=== PATIENT | male | born 1965 | race Caucasian/White ===

== ENCOUNTER 2020-05-09 23:53 | Emergency (ER) | payer SELFPAY ==
[~2020-05-09] VITALS: Ht 182.9 cm; Wt 117.9 kg
--- OUTSIDE RECORDS SUMMARY | ~2020-05-09 | XMS | Clinical Summary ---
Demographics + + + | Address | [address] | | | [place] [address] | + + + | Home Phone | | + + + | Preferred Language | Unknown | + + + | Marital Status | | + + + | Baptist Affiliation | Unknown | + + + | Race | Unknown | + + + | Ethnic Group | Unknown | + + + Author + + + | Author | [facility] | | | and [place] | + + + | Organization | [facility] | | | and [place] | + + + | Address | Unknown | + + + | Phone | Unavailable | + + + Support + + +---------+ + | Name | Relationship | Address | Phone | + + +---------+ + | Lindsay Hector | ECON | Unknown | | + + +---------+ + Care Team Providers + +------+ + | Care Liquid Floor And Wall Applier Name | Role | Phone | + +------+ + | No, Physician | PCP | Unavailable | + +------+ + Allergies + + + + + + | Active Allergy | Reactions | Severity | Noted | Comments | | | | | Date | | + + + + + + | Penicillins | Hives | | 02/13/20 | | | | | | 19 | | + + + + + + Medications + + + +---------+------+------+-------+ | Medication | Sig | Dispensed | Refills | Star | End | Statu | | | | | | t | Date | s | | | | | | Date | | | + + + +---------+------+------+-------+ | tiZANidine | Take 1 tablet by | 30 | 0 | 05/1 | | Activ | | (ZANAFLEX) 2 MG | mouth every 8 hours | tablet | | 6/20 | | e | | tabletIndications: | as needed. | | | 19 | | | | Acute left-sided low | | | | | | | | back pain without | | | | | | | | sciatica | | | | | | | + + + +---------+------+------+-------+ Active Problems No known active problems Social History + +-------+ +--------+------+ | Tobacco Use | Types | Packs/Day | Years | Date | | | | | Used | | + +-------+ +--------+------+ | Former Smoker | | | | | + +-------+ +--------+------+ + +---+---+---+ | Smokeless Tobacco: | | | | | Never Used | | | | + +---+---+---+ + + + | Sex Assigned at | Date Recorded | | | | + + + | Not on file | | + + + Last Filed Vital Signs + + + + + | Vital Sign | Reading | Time Taken | Comments | + + + + + | Blood Pressure | 119/80 | 02/12/2019 9:14 AM | | | | | PDT | | + + + + + | Pulse | 78 | 02/12/2019 9:14 AM | | | | | PDT | | + + + + + | Temperature | 36.6 C (97.9 F) | 02/12/2019 9:14 AM | | | | | PDT | | + + + + + | Respiratory Rate | 18 | 02/12/2019 9:14 AM | | | | | PDT | | + + + + + | Oxygen Saturation | 96% | 02/12/2019 9:14 AM | | | | | PDT | | + + + + + | Inhaled Oxygen | - | - | | | Concentration | | | | + + + + + | Weight | 118.5 kg (261 lb 3.9 | 02/12/2019 9:14 AM | | | | oz) | PDT | | + + + + + | Height | 182.9 cm (6') | 02/12/2019 9:14 AM | | | | | PDT | | + + + + + | Body Mass Index | 35.43 | 02/12/2019 9:14 AM | | | | | PDT | | + + + + + Plan of Treatment + + +-------+ + | Health Maintenance | Due Date | Last | Comments | | | | Done | | + + +-------+ + | Hepatitis C | | | | | Screening | 7 | | | + + +-------+ + | Vaccine: | | | | | Dtap/Tdap/Td (1 - | 6 | | | | Tdap) | | | | + + +-------+ + | Colorectal Cancer | | | | | Screening | 7 | | | | (Colonoscopy) | | | | + + +-------+ + | Vaccine: Zoster (1 | | | | | of 2) | 7 | | | + + +-------+ + | Vaccine: Influenza | | | | | (#1) | 0 | | | + + +-------+ + Results Not on filefrom Last 3 Months Advance Directives + + + + + | Type | Date Recorded | Patient | Explanation | | | | 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
--- OUTSIDE RECORDS SUMMARY | ~2020-05-09 | XMS | Encounter Summary ---
Demographics + + + | Address | [address] | | | [place] [address] | + + + | Home Phone | | + + + | Preferred Language | Unknown | + + + | Marital Status | | + + + | Orthodox Affiliation | Unknown | + + + | Race | Unknown | + + + | Ethnic Group | Unknown | + + + Author + + + | Author | [facility] | | | and [place] | + + + | Organization | [facility] | | | and [place] [...] Team Providers + +------+ + | Care Media Executive Name | Role | Phone | + +------+ + | No, Physician | PCP | Unavailable | + +------+ + Encounter Details +--------+ + + + + | Date | Type | Department | Care Team | Description | +--------+ + + + + | 02/12/ | Imaging | [facility] X[facility] | Darci Ritchie | | | 2019 | Exam | [address] | | | | | [address] | [place] | | | | | [place] [id number] | [id number] | | | | | [phone] | | | +--------+ + + + + Social History + +-------+ +--------+------+ | Tobacco [...] on file | | + + + documented as of this encounter Plan of Treatment Not on filedocumented as of this encounter Procedures + +--------+ + + + | Procedure Name | Priori | Date/Time | Associated Diagnosis | Comments | | | ty | | | | + +--------+ + + + | XR CHEST PA AND | STAT | 02/12/2019 | Chronic cough | Results for this | | LATERAL | | 10:12 AM | | procedure are in the | | | | PDT | | results section. | + +--------+ + + + documented in this encounter Results XR Chest PA and Lateral (02/12/2019 10:12 AM PDT) + + | Specimen | + + | | + + + + + | Narrative | Performed At | + + + | XR CHEST PA AND LATERAL 02/12/2019 10:12 AM HISTORY: smoker with | [facility] | | chronic cough. COMPARISON: None. Findings: The bilateral | | | lungs are clear with no evidence for pleural effusion or | | | pneumothorax. Heart size is within normal limits. Pulmonary | | | vasculature is within normal limits. Aorta is normal. Mediastinum is | | | unremarkable. No acute osseous or soft tissue abnormality identified. | | | IMPRESSION - No acute intrathoracic abnormality identified. | | | Dictated and Signed by: Tristen Oneill MD Electronically signed: | | | 02/12/2019 10:17 AM | | + + + + + | Procedure Note | + + | Volodymyr, Rad Results In - 02/12/2019 10:20 AM PDT XR CHEST PA AND LATERAL 02/12/2019 10:12 | | AMHISTORY: smoker with chronic cough.COMPARISON: None.Findings:The bilateral lungs are | | clear with no evidence for pleural effusion orpneumothorax. Heart size is within normal | | limits. Pulmonary vasculature iswithin normal limits. Aorta is normal. Mediastinum is | | unremarkable. No acuteosseous or soft tissue abnormality identified. IMPRESSION - No | | acute intrathoracic abnormality identified.Dictated and Signed by: Tristen Oneill MD | | Electronically signed: 02/12/2019 10:17 AM | |The bilateral lungs are clear with no evidence for pleural effusion or | |pneumothorax. Heart size is within normal limits. Pulmonary vasculature is | |within normal limits. Aorta is normal. Mediastinum is unremarkable. No acute | |osseous or soft tissue abnormality identified. | | | |IMPRESSION - | |No acute intrathoracic abnormality identified. | | | |Dictated and Signed by: Tristen Oneill MD | | Electronically signed: 02/12/2019 10:17 AM | + + + +---------+ + + | Performing | Address | City/State/Zipcode | Phone Number | | Organization | | | | + +---------+ + + | [facility] | | | | + +---------+ + + documented in this encounter Visit Diagnoses Not on filedocumented in this encounter"
--- OUTSIDE RECORDS SUMMARY | ~2020-05-09 | XMS | Encounter Summary ---
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 Name | Role | Phone | + +------+ + | No, Physician | PCP | Unavailable | + +------+ + Reason for Referral Evaluate & Treat (Routine) +--------+ + + + + + | Status | Reason | Specialty | Diagnoses / | Referred By | Referred To | | | | | Procedures | Contact | Contact | +--------+ + + + + + | Closed | Specialty | Gastroenterol | Diagnoses | | [facility] | | Services | ogy | Change in | [facility] | Gastroenterol | | | Required | | bowel habits | , Darci Kelly MD | ogy [address] | | | | | Family | [address] | [address] | | | | | history of | [address] [place] | [address] [place] | | | | | colon cancer | [place] | [place], [place] | | | | | | [address] | [address] | | | | | | Phone: | Phone: | | | | | | [phone] | [phone] | | | | | | Fax: | Fax: | | | | | | [phone] | [phone] | +--------+ + + + + + Reason for Visit + + + | Reason | Comments | + + + | Flank Pain | Room 6: no energy, cold sweats x 4 days, pain in left flank x 4 | | | days, nausea; hx of kidney stones | + + + Encounter Details +--------+---------+ + + + | Date | Type | Department | Care Team | Description | +--------+---------+ + + + | 02/12/ | Office | [facility] | Darci Ritchie | Acute left-sided low | | 2019 | Visit | CARE [address] | MD [place] [address] | back pain without | | | | [place] | [address] [place] | sciatica (Primary | | | | [address] | [address] | Dx); Fatigue, | | | | [phone] | | unspecified type; | | | | | | Chronic cough; Night | | | | | | sweats; Weight | | | | | | loss, unintentional; | | | | | | Change in bowel | | | | | | habits; Family | | | | | | history of colon | | | | | | cancer | +--------+---------+ + + + Social History + +-------+ [...] + + documented as of this encounter Last Filed Vital Signs + + + [...] | | + + + + + documented in this encounter Patient Instructions Patient Instructions Michelle Carranza ARNP - 02/12/2019 9:00 AM PDTApply ice to the painful area for 15-20 min. at a time or moist heat for no longer than 15 min. to ten honey area. Use whichever you find most beneficial. Do not sleep on heating pad to prevent b urns. Rest on your back on a firm surface in the Z-position to relax your back. Limit yourself to light activity, with slow stretching and range of motion for your back as needed. Follow recommendations provided on the included instructions. Take Aleve 2 tablets twice a day with food or ibuprofen 600 mg every 6 hours with food as n eeded for pain. Drink lots of fluids to stay well hydrated. Take muscle relaxer, tizanidine 2 mg, 1 tablet up to 3 times daily or only at bedtime as ne eded for insomnia and muscle pain. Be aware that use during the day may cause drowsiness and effect ability to work and drive [place]. Referral has been made to [place] [facility] for colonoscopy to screen for colon cancer. Make an appointment to establish with a primary care provider at [facility] medicine clinic by calling [phone] for an appointment. Return to clinic in the interim if symptoms change or worsen. Report to the emergency room if chest pain, shortness of breath, persistent numbness or tin gling, incontinence of bowel and/or bladder or persistent leg weakness develops. Back Care Tips Caring for your back These are things you can do to prevent a recurrence of acute back pain and to reduce sympto ms from chronic back pain: Maintain a healthy weight. If you are overweight, losing weight will help most types of back pain. Exercise is an important part of recovery from most types of back pain. The muscles behi nd and in front of the spine support the back. This means strengthening both the back muscle s and the abdominal muscles will provide better support for your spine. Swimming and brisk walking are good overall exercises to improve your fitness level. Practice safe lifting methods (below). Practice good posture when sitting, standing and walking. Avoid prolonged sitting. This puts more stress on the lower back than standing or walking. Wear quality shoes with sufficient arch support. Foot and ankle alignment can affect evans k symptoms. Women should avoid wearing high heels. Therapeutic massage can help relax the back muscles without stretching them. During the first 24 to 72 hours after an acute injury or flare-up of chronic back pain, apply an ice pack to the painful area for 20 minutes and then remove it for 20 minutes, over a period of 60 to 90 minutes, or several times a day. As a safety precaution, do not use a heating pad at bedtime. Sleeping on a heating pad can lead to skin jordan or tissue damage. You can alternate ice and heat therapies. Medicines Talk to your healthcare provider before using medicines, especially if you have other medic al problems or are taking other medicines. You may use acetaminophen or ibuprofen to control pain, unless your healthcare provider prescribed other pain medicine. If you have chronic conditions like diabetes, liver or kidne y disease, stomach ulcers, or gastrointestinal bleeding, or are taking blood thinners, talk with your healthcare provider before taking any medicines. Be careful if you are given prescription pain medicines, narcotics, or medicine for musc le spasm. They can cause drowsiness, affect your coordination, reflexes, and judgment. Do no t drive or operate heavy machinery while taking these types of medicines. Take prescription pain medicine only as prescribed by your healthcare provider. Lumbar stretch Here is a simple stretching exercise that will help relax muscle spasm and keep your back m ore limber. If exercise makes your back pain worse, don t do it. Lie on your back with your knees bent and both feet on the ground. Slowly raise your left knee to your chest as you flatten your lower back against the mike or. Hold for 5 seconds. Relax and repeat the exercise with your right knee. Do 10 of these exercises for each leg. Safe lifting method Don t bend over at the waist to lift an object off the floor. Instead, bend your kne es and hips in a squat. Keep your back and head upright Hold the object close to your body, directly in front of you. Straighten your legs to lift the object. Lower the object to the floor in the reverse fashion. If you must slide something across the floor, push it. Posture tips Sitting Sit in chairs with straight backs or low-back support. Keep your knees lower than your hips , with your feet flat on the floor. When driving, sit up straight. Adjust the seat forward so you are not leaning toward the [employer] wheel. A small pillow or rolled towel behind your lower back may help if you are dr iving long distances. Standing When standing for long periods, shift most of your weight to one leg at a time. Alternate l egs every few minutes. Sleeping The best way to sleep is on your side with your knees bent. Put a low pillow under your hea d to support your neck in a neutral spine position. Avoid thick pillows that bend your neck to one side. Put a pillow between your legs to further relax your lower back. If you sleep o n your back, put pillows under your knees to support your legs in a slightly flexed position . Use a firm mattress. If your mattress sags, replace it, or use a 1/2-inch plywood board un honey the mattress to add support. Follow-up care Follow up with yourhealthcare provider, or as advised. If X-rays, a CT scan or an MRI scan were taken, they will be reviewed by a radiologist. You will be notified of any new findings that may affect your care. Call 911 Call 911 if any of the following occur: Trouble breathing Confusion Very drowsy Fainting or loss of consciousness Rapid or very slow heart rate Loss of bowel or bladder control When to seek medical advice Call your healthcare provider right awayif any of the following occur: Pain becomes worse or spreads to your arms or legs Weakness or numbness in one or both arms or legs Numbness in the groin area Date Last Reviewed: 02/29/201619995009-5115 [employer]. [address] [place] [address]. All righ ts reserved. This information is not intended as a substitute for professional medical care. Always follow your healthcare professional's instructions. documented in this encounter Progress Notes Melanie Ge RN - 02/12/2019 9:00 AM PDTVerified name and date of of mayela fish before provider orders were carried out. Venipuncture X1 left arm with 21 gauge butterfly needle. Patient tolerated well. Darci Vega MD - 02/12/2019 9:00 AM PDTFormatting of this note might be different from the or iginal. Subjective: Chief Complaint: Flank Pain (Room 6: no energy, cold sweats x 4 days, pain in left flank x 4 days, nausea; hx of kidney stones) Ministerio is a 53 y.o. male without insurance or a primary care provider who presents with hi s for possible kidney stone and multiple other complaints, mostly chronic. 4 day histor y of fatigue, sweats and left low back pain associated with nausea and history of kidney sto almita. Denies dysuria but has nocturia every 1-1/2 hours without urgency, hematuria, cloudy o r foul-smelling urine. No suprapubic discomfort and or flank pain. Pain is located across the small of his back and is positional without radiation into the abdomen, groin, buttocks or legs. No fevers or chills, had episode of nausea, vomiting and diarrhea 3 days ago which has resolved. Denies bloody or black tarry bowel movements. Ministerio has no hx of prior U TI's or prostate infections. He also reports a cough for the last 6 months occasionally productive of white sputum. Den ies hemoptysis. Former smoker quit about 1 year ago. 3-month history of night sweats witho ut documented fever. No history of heart disease. He has mild increase in dyspnea on exert ion when walking his dogs without exertional chest pain or tightness. No history of CAD or valvular heart disease. He denies orthopnea but has occasional PND. No history of COPD or asthma. Appetite's been down and reports approximate 30 pound weight loss over the last 6 m onths. Denies personal history of cancer. Family history of colon cancer in his uncle and brother with liver cancer. He is noticed a change in his bowel habits with less frequent ashlee wel movements. No other complaints. Patient's medications, allergies, past medical, surgical, social and family histories were reviewed and updated as appropriate. Systems review is included in the body of the HPI. Objective: BP 119/80 | Pulse 78 | Temp 36.6 C (97.9 F) (Temporal) | Resp 18 | Ht 1.829 m (6') | Wt 118.5 kg (261 lb 3.9 oz) | SpO2 96% | BMI 35.43 kg/m General Appearance: Alert, cooperative, obese, middle-aged male, appears well, no distress , appears stated age. HEENT: [place] conjunctiva, anicteric sclera, there is are clear, moist oral membranes, pharyn x unremarkable with large airway. Neck: Supple without adenopathy, JVD or bruit. He has a lipoma over the suprasternal notch which is well-circumscribed and mobile. No obvious thyroid abnormality. Chest: Clear to auscultation without rales, rubs or wheezes. No cardiac: Quiet precordium, regular rhythm without murmur or gallop. Abdomen: Flat with normally active bowel sounds, soft, nontender to deep palpation, No SP f ullness. Otherwise non-tender without rebound tenderness or guarding, no masses, no organome marry. Back: No CVA tenderness to percussion. Bilateral lower lumbar paraspinous muscle tendernes s with mild diffuse midline tenderness. No focal tenderness to percussion. No pain with ax ial compression of the vertebral column. Genital and rectal exams was not performed. Skin: Skin color normal, no rashes, warm and dry. No dependent edema. Neurologic: Certain oriented. Cranial nerves grossly intact. DTRs are normoactive. Senso rimotor exam grossly nonfocal. 2 view chest x-ray, today: IMPRESSION - No acute intrathoracic abnormality identified. Results for orders placed or performed in visit on 02/12/19 Comprehensive Metabolic Panel Result Value Ref Range Na 142 136 - 145 mmol/L K 4.4 3.5 - 5.1 mmol/L Cl 104 98 - 107 mmol/L CO2 31 21 - 32 mmol/L Anion Gap 7 2 - 16 mmol/L Glucose 104 74 - 106 mg/dL BUN 12 7 - 18 mg/dL Creatinine 0.97 0.70 - 1.30 mg/dL eGFR if not >60 >=60 mL/min/1.73m2 Ca 8.9 8.5 - 10.1 mg/dL Albumin 3.7 3.4 - 5.0 g/dL Bilirubin Total 0.5 0.2 - 1.0 mg/dL Total Protein 6.8 6.4 - 8.2 g/dL AST 32 15 - 37 U/L ALT 62 16 - 63 U/L Alkaline Phosphatase 74 46 - 116 U/L Globulin 3.1 2.1 - 3.8 g/dL Albumin/Globulin Ratio 1.2 0.8 - 2.0 BUN/Creatinine Ratio 12.4 CBC with Differential Result Value Ref Range WBC 8.4 4.0 - 11.0 K/uL RBC 4.94 4.30 - 5.70 M/uL Hemoglobin 15.1 13.5 - 18.0 g/dL Hematocrit 45.6 40.0 - 51.0 % MCV 92.3 83.0 - 101.0 fL MCH 30.6 28.0 - 35.0 pg MCHC 33.1 32.0 - 36.0 g/dL RDW-CV 12.6 <15.0 % RDW-SD 43.4 35.1 - 46.3 fL Platelet Count 178 140 - 440 K/uL MPV 10.8 6.5 - 12.4 fL % Neutrophils 68.7 45.0 - 82.0 % % Lymphocytes 18.8 (L) 20.0 - 45.0 % % Monocytes 9.0 4.0 - 12.0 % % Eosinophils 2.5 0.0 - 5.0 % % Basophils 0.4 0.0 - 1.0 % % Immature Granulocytes 0.6 (H) 0.0 - 0.4 % Absolute Neutrophils 5.74 1.80 - 8.50 K/uL Absolute Lymphocytes 1.57 0.60 - 3.20 K/uL Absolute Monocytes 0.75 0.00 - 1.00 K/uL Absolute Eosinophils 0.21 0.00 - 0.40 K/uL Absolute Basophils 0.03 0.00 - 0.10 K/uL Absolute Immature Granulocytes 0.05 (H) 0.00 - 0.03 K/uL TSH Result Value Ref Range TSH 1.94 0.36 - 3.74 uIU/mL POCT Urinalysis Result Value Ref Range Color, UA, POC Mariam (A) Yellow, Light Yellow Clarity, UA, POC Slightly Cloudy Glucose, UA, POC Negative Negative Bilirubin, UA, POC Small (A) Negative Ketones, UA, POC Trace (A) Negative, 100 mg/dL Specific [place], UA, POC 1.030 1.001 - 1.030 Blood, UA, POC Negative Negative pH, UA, POC 5.5 5.0, 6.0, 7.0, 8.0, 5.5, 6.5, 7.5 Protein, UA, POC 30 mg/dL (A) Negative Urobilinogen, UA, POC 1.0 E.U./dL 0.2, Negative, Normal, < 0.2 mg/dL, 1 mg/dL, < 0.2 E.U./ dl, 1.0 E.U./dL, 0.2 mg/dL Nitrite, UA, POC Negative Negative Leukocyte Esterase, UA, POC Negative Negative Reducing Substances, Urine Ictotest Negative Remark Assessment and Plans: 1. Acute left-sided low back pain without sciatica POCT Urinalysis tiZANidine (ZANAFLEX) 2 MG tablet 2. Fatigue, unspecified type Comprehensive Metabolic Panel CBC with Differential TSH 3. Chronic cough XR Chest PA and Lateral 4. Night sweats 5. Weight loss, unintentional 6. Change in bowel habits * [facility] - AMB Referral 7. Family history of colon cancer * [facility] - AMB Referral Middle-aged male without primary care provider or health care for many years, presents with multiple complaints primarily surrounding his musculoskeletal low back pain, chronic cough, fatigue, night sweats, unintentional weight loss and change in bowel habits. He was given the following instructions, prescription and was referred to GI for colonoscopy and to sofi white with a PCP. Visited patient with [id number]-ip-pcwf time of 45 minutes with medical decision making of high complexity. Plan: Apply ice to the painful area for 15-20 min. at a time or moist heat for no longer than 15 min. to tender area. Use whichever you find most beneficial. Do not sleep on heating pad t o prevent jordan. Rest on your back on a firm surface in the Z-position to relax your back. Limit yourself to light activity, with slow stretching and range of motion for your back as needed. Follow recommendations provided on the included instructions. Take Aleve 2 tablets twice a day with food or ibuprofen 600 mg every 6 hours with food as n eeded for pain. Drink lots of fluids to stay well hydrated. Take muscle relaxer, tizanidine 2 mg, 1 tablet up to 3 times daily or only at bedtime as ne eded for insomnia and muscle pain. Be aware that use during the day may cause drowsiness and effect ability to work and drive [place]. Referral has been made to [place] [facility] for colonoscopy to screen for colon cancer. Make an appointment to establish with a primary care provider at [facility] medicine clinic by calling [phone] for an appointment. Return to clinic in the interim if symptoms change or worsen. Report to the emergency room if chest pain, shortness of breath, persistent numbness or tin gling, incontinence of bowel and/or bladder or persistent leg weakness develops. Darci Jonas documented i n this encounter Plan of Treatment + + +--------+ + + | Name | Type | Priori | Associated Diagnoses | Order Schedule | | | | ty | | | + + +--------+ + + | * [facility] | Outpatient | Routin | Change in bowel | Ordered: 02/12/2019 | | Gastroenterology - | Referral | e | habits Family | | | AMB Referral | | | history of colon | | | | | | cancer | | + + +--------+ + + documented as of this encounter Procedures + +--------+ [...] section. | + +--------+ + + + | CBC WITH | STAT | 02/12/2019 | Fatigue, | Results for this | | DIFFERENTIAL | | 9:50 AM | unspecified type | procedure are in the | | | | PDT | | results section. | + +--------+ + + + | TSH | STAT | 02/12/2019 | Fatigue, | Results for this | | | | 9:50 AM | unspecified type | procedure are in the | | | | PDT | | results section. | + +--------+ + + + | COMPREHENSIVE | STAT | 02/12/2019 | Fatigue, | Results for this | | METABOLIC PANEL | | 9:50 AM | unspecified type | procedure are in the | | | | PDT | | results section. | + +--------+ + + + | POCT URINALYSIS, | Routin | 02/12/2019 | Acute left-sided | Results for this | | AUTO WITH CONF | e | 9:45 AM | low back pain | procedure are in the | | | | PDT | without sciatica | results section. | + +--------+ + [...] | | | + +---------+ + + TSH (02/12/2019 9:50 AM PDT) + +-------+ + + + | Component | Value | Ref Range | Performed | Pathologist | | | | | At | Signature | + +-------+ + + + | TSH | 1.94 | 0.36 - 3.74 | [facility] | | | | | uIU/mL | [facility] | | | [facility] | | | | [facility] | | + +-------+ + + + + + | Specimen | + + | Blood | + + + + + + + | Performing | Address | City/State/Zipcode | Phone Number | | Organization | | | | + + + + + | [facility] | [address] | [place] | [phone] | | [facility] | | [address] | | | [facility] | | | | + + + + + CBC with Differential (02/12/2019 9:50 AM PDT) + + + + + + | Component | Value | Ref Range | Performed | Pathologist | | | | | At | Signature | + + + + + + | White Blood | 8.4 | 4.0 - 11.0 K/uL | [facility] | | | Cells | | | [facility] | [facility] | | | [facility] | | | | [facility] | | + + + + + + | Red Blood | 4.94 | 4.30 - 5.70 | [facility] | | | Cells | | M/uL | [facility] | | [facility] | | | | [facility] | | [facility] | | + + + + + + | Hemoglobin | 15.1 | 13.5 - 18.0 | [facility] | | | | | g/dL | [facility] | [facility] | | | [facility] | | + + + + + + | Hematocrit | 45.6 | 40.0 - 51.0 % | [facility] | | | | | | [facility] | | | [facility] | | + + + + + + | MCV | 92.3 | 83.0 - 101.0 fL | [facility] | | | | | | [facility] | | | [facility] | | + + + + + + | MCH | 30.6 | 28.0 - 35.0 pg | [facility] | | | | | | [facility] | | | | [facility] | | + + + + + + | MCHC | 33.1 | 32.0 - 36.0 | [facility] | | | | | g/dL | [facility] | [facility] | | + + + + + + | RDW-CV | 12.6 | <15.0 % | [facility] | | | | | | [facility] | | | | [facility] | | + + + + + + | RDW-SD | 43.4 | 35.1 - 46.3 fL | [facility] | | | | | | [facility] | [facility] | | + + + + + + | Platelet | 178 | 140 - 440 K/uL | [facility] | | | Count | | | [facility] | | | [facility] | | + + + + + + | MPV | 10.8 | 6.5 - 12.4 fL | [facility] | | | | | | [facility] | [facility] | | + + + + + + | % | 68.7 | 45.0 - 82.0 % | [facility] | | | Neutrophils | | | [facility] | | [facility] | | | | | [facility] | | [facility] | [facility] | | + + + + + + | % | 18.8 (L) | 20.0 - 45.0 % | [facility] | | | Lymphocytes | | | [facility] | [facility] | | | | | [facility] | | | | [facility] | | + + + + + + | % Monocytes | 9.0 | 4.0 - 12.0 % | [facility] | | | | | | [facility] | [facility] | | | | | [facility] | | [facility] | | + + + + + + | % | 2.5 | 0.0 - 5.0 % | [facility] | | | Eosinophils | | | [facility] | [facility] | | | | [facility] | | | | [facility] | | + + + + + + | % Basophils | 0.4 | 0.0 - 1.0 % | [facility] | | | | | | [facility] | | [facility] | | | | | [facility] | | | | | [facility] | | + + + + + + | % Immature | 0.6 (H)Comment: | 0.0 - 0.4 % | [facility] | | | Granulocyte | Preliminary studies have | | [facility] | | | s | indicated the IG% | | [facility] | | | | and/or IG# show promise | | [facility] | | | | as an early indicator | | [facility] | | | | for infection. | | | | + + + + + + | Absolute | 5.74 | 1.80 - 8.50 | [facility] | | | Neutrophils | | K/uL | [facility] | | [facility] | [facility] | | | | | | [facility] | | | | | [facility] | | + + + + + + | Absolute | 1.57 | 0.60 - 3.20 | [facility] | | | Lymphocytes | | K/uL | [facility] | | | | | [facility] | | | | | | [facility] | | | | | | [facility] | | + + + + + + | Absolute | 0.75 | 0.00 - 1.00 | [facility] | | | Monocytes | | K/uL | [facility] | | | | | [facility] | | | | | | [facility] | | | | | | [facility] | | + + + + + + | Absolute | 0.21 | 0.00 - 0.40 | [facility] | | | Eosinophils | | K/uL | [facility] | | | | | [facility] | | | | | | [facility] | | | | | | [facility] | | + + + + + + | Absolute | 0.03 | 0.00 - 0.10 | [facility] | | | Basophils | | K/uL | [facility] | | | | | [facility] | | | | | | [facility] | | | | | [facility] | | + + + + + + | Absolute | 0.05 (H) | 0.00 - 0.03 | [facility] | | | Immature | | K/uL | [facility] | | | Granul[facility] | | | [facility] | | | s | | | [facility] | | | | | | [facility] | | + + + + + + + + | Specimen | + + | Blood | + + + + + + + | Performing | Address | City/State/Zipcode | Phone Number | | Organization | | | | + + + + + | [facility] | [address] | [place] | [phone] | | [facility] | | [address] | | | [facility] | | | | + + + + + Comprehensive Metabolic Panel (02/12/2019 9:50 AM PDT) + + + + + + | Component | Value | Ref Range | Performed | Pathologist | | | | | At | Signature | + + + + + + | Na | 142 | 136 - 145 | [facility] | | | | | mmol/L | [facility] | | [facility] | | | | [facility] | | | | [facility] | | + + + + + + | K | 4.4 | 3.5 - 5.1 | [facility] | | | | | mmol/L | [facility] | | | | [facility] | | | | | [facility] | | | | [facility] | | + + + + + + | Cl | 104 | 98 - 107 mmol/L | [facility] | | | | | | [facility] | | | | [facility] | | + + + + + + | CO2 | 31 | 21 - 32 mmol/L | [facility] | | | | | | [facility] | | | | [facility] | | | | [facility] | | + + + + + + | Anion Gap | 7 | 2 - 16 mmol/L | [facility] | | | | | | [facility] | | | | [facility] | | [facility] | | + + + + + + | Glucose | 104 | 74 - 106 mg/dL | [facility] | | | | | | [facility] | | | | [facility] | | | [facility] | | + + + + + + | BUN | 12 | 7 - 18 mg/dL | [facility] | | | | | | [facility] | | | | | | [facility] | | | | | | [facility] | | + + + + + + | Creatinine | 0.97 | 0.70 - 1.30 | [facility] | | | | | mg/dL | [facility] | | | | | | MEDICAL | | | | | | [facility] | | | | | | LABORATORY | | + + + + + + | eGFR, | >60Comment: GLOMERULAR | >=60 | [facility] | | | non- | FILTRATION | mL/min/1.73m2 | [facility] | | | [place] | RATE,ESTIMATED | | MEDICAL | | | | mL/min/1.73s7Gmgc than | | PARK | | | | 60 Chronic kidney | | LABORATORY | | | | disease,if found over a | | | | | | 3-month period.Less than | | | | | | 15 Kidney failureFor | | | | | | | | | | | | Americans,multiply the | | | | | | calculated GFR by 1.21. | | | | | | | | | | + + + + + + | Calcium | 8.9 | 8.5 - 10.1 | [facility] | | | | | mg/dL | [facility] | | | | | | MEDICAL | | | | | | [facility] | | | | | | LABORATORY | | + + + + + + | Albumin | 3.7 | 3.4 - 5.0 g/dL | [facility] | | | | | | [facility] | | | | | | [facility] | | | | | | [facility] | | | | | | LABORATORY | | + + + + + + | Bilirubin | 0.5 | 0.2 - 1.0 mg/dL | [facility] | | | Total | | | [facility] | | | | | | [facility]ICAL | | | | | | [facility] | | | | | | LABORATORY | | + + + + + + | Total | 6.8 | 6.4 - 8.2 g/dL | [facility] | | | Protein | | | [facility] | | | | | | MEDICAL | | | | | | [facility]ARK | | | | | | LABORATORY | | + + + + + + | AST | 32 | 15 - 37 U/L | [facility] | | | | | | [facility] | | | | | | [facility] | | | | | | [facility] | | | | | | LABORATORY | | + + + + + + | ALT | 62 | 16 - 63 U/L | [facility] | | | | | | [facility] | | | | | | [facility] | | | | | | [facility] | | | | | | LABORATORY | | + + + + + + | Alkaline | 74 | 46 - 116 U/L | [facility] | | | Phosphatase | | | [facility] | | | | | | [facility] | | | | | | [facility]ARK | | | | | | LABORATORY | | + + + + + + | Globulin | 3.1 | 2.1 - 3.8 g/dL | [facility] | | | | | | [facility] | | | | | [facility] | | | | | | [facility] | | | | | | LABORATORY | | + + + + + + | Albumin/Rayan | 1.2 | 0.8 - 2.0 | [facility] | | | bulin Ratio | | | [facility] | | | | | | [facility]ICAL | | | | | | [facility] | | | | | | LABORATORY | | + + + + + + | BUN/Creatin | 12.4 | | [facility] | | | ine Ratio | | | [facility] | | | | | | [facility]ICAL | | | | | | [facility] | | | | | | LABORATORY | | + + + + + + + + | Specimen | + + | Blood | + + + + + + + | Performing | Address | City/State/Zipcode | Phone Number | | Organization | | | | + + + + + | [facility] | [address] | [place] | [phone] | | [facility] | | [address] | | | [facility] | | | | + + + + + POCT Urinalysis (02/12/2019 9:45 AM PDT) + + + + + + | Component | Value | Ref Range | Performed | Pathologist | | | | | At | Signature | + + + + + + | Color, UA, | Mariam (A) | Yellow, Light | | | | POC | | Yellow | | | + + + + + + | Clarity, | Slightly Cloudy | | | | | UA, POC | | | | | + + + + + + | Glucose, | Negative | Negative | | | | UA, POC | | | | | + + + + + + | Bilirubin, | Small (A) | Negative | | | | UA, POC | | | | | + + + + + + | Ketones, | Trace (A) | Negative, 100 | | | | UA, POC | | mg/dL | | | + + + + + + | Specific | 1.030 | 1.001 - 1.030 | | | | [place], | | | | | | UA, POC | | | | | + + + + + + | Blood, UA, | Negative | Negative | | | | POC | | | | | + + + + + + | pH, UA, POC | 5.5 | 5.0, 6.0, 7.0, | | | | | | 8.0, 5.5, 6.5, | | | | | | 7.5 | | | + + + + + + | Protein, | 30 mg/dL (A) | Negative | | | | UA, POC | | | | | + + + + + + | Urobilinoge | 1.0 E.U./dL | 0.2, Negative, | | | | n, UA, POC | | Normal, < 0.2 | | | | | | mg/dL, 1 mg/dL, | | | | | | < 0.2 E.U./dl, | | | | | | 1.0 E.U./dL, | | | | | | 0.2 mg/dL | | | + + + + + + | Nitrite, | Negative | Negative | | | | UA, POC | | | | | + + + + + + | Leukocyte | Negative | Negative | | | | Esterase, | | | | | | UA, POC | | | | | + + + + + + | Reducing | | | | | | Substances, | | | | | | Urine | | | | | + + + + + + | Bilirubin | | Negative | | | | Confirmatio | | | | | | n by | | | | | | Ictotest, | | | | | | Urine | | | | | + + + + + + | Remark | | | | | + + + + + + + + | Specimen | + + | Urine | + + documented in this encounter Visit Diagnoses + + | Diagnosis | + + | Acute left-sided low back pain without sciatica - Primary | + + | Fatigue, unspecified type | + + | Chronic cough Cough | + + | Night sweats Generalized hyperhidrosis | + + | Weight loss, unintentional Loss of weight | + + | Change in bowel habits Other symptoms involving digestive system | + + | Family history of colon cancer Family history of malignant neoplasm of | | gastrointestinal tract | + + documented in this encounter"
[~2020-05-09 23:53] MED LIST: IBUPROFEN600 MG PO; KEFLEX500 MG PO; NAPROSYN500 MG PO; NORCO 5-325 TA1 EACH PO
[2020-05-10] MEDS ORDERED: NORCO 5-325 TA1 EACH PO (00:49)
== END 2020-05-10 01:04 | disposition home or self-care (01) ==
LOC: ED 23:53
DX: M43.6 Torticollis (principal); F17.200 Nicotine dependence, unspecified, uncomplicated; Z88.0 Allergy status to penicillin
CPT/HCPCS: 96372; 99283; J1100; J1885

== ENCOUNTER 2020-08-19 16:09 | Emergency (ER) | payer OTHER ==
[~2020-08-19] VITALS: Ht 182.9 cm; Wt 117.9 kg
[2020-08-19] MEDS ORDERED: DOXYCYCLINE HY100 MG PO (19:09)
[2020-08-19] MEDS ORDERED: VENTOLIN HFA18 GM INH (19:09)
[2020-08-19] MEDS ORDERED: PREDNISONE20 MG PO (19:09)
== END 2020-08-19 19:20 | disposition home or self-care (01) ==
LOC: ED 16:09
DX: J20.9 Acute bronchitis, unspecified (principal); F17.200 Nicotine dependence, unspecified, uncomplicated; Z88.0 Allergy status to penicillin; Z20.828 Contact with and (suspected) exposure to other viral communicable diseases
CPT/HCPCS: 71045; 80053; 83880; 85025; 94640; 96374; 99285-25; J2930; U0003

== ENCOUNTER 2021-06-29 11:40 | Emergency (ER) | payer OTHER ==
[~2021-06-29] VITALS: Ht 182.9 cm; Wt 112.0 kg
[~2021-06-29 11:40] MED LIST changes: +DOXYCYCLINE HY100 MG PO; +PREDNISONE20 MG PO; +VENTOLIN HFA18 GM INH
[2021-06-29] MEDS ORDERED: ONDANSETRON ODT4 MG PO (14:08)
== END 2021-06-29 15:15 | disposition home or self-care (01) ==
LOC: ED 11:40
DX: U07.1 COVID-19 (principal); F17.200 Nicotine dependence, unspecified, uncomplicated; Z79.899 Other long term (current) drug therapy
CPT/HCPCS: 71045; 80053; 85025; 96374; 99285-25; C9803; J1885; J7030; M0243; Q0244; U0003

== ENCOUNTER 2021-07-01 18:57 | Emergency (ER) | payer OTHER ==
[~2021-07-01] VITALS: Ht 182.9 cm; Wt 112.0 kg
[~2021-07-01 18:57] MED LIST changes: +ONDANSETRON ODT4 MG PO
--- OUTSIDE RECORDS SUMMARY | 2021-07-01 19:04 | XMS ---
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 Chrissie has no Care Guidelines for this patient. [facility] V[facility] ([address] [facility] NOTE: Visits indicate total known visits. ED/C VISIT TRACKING (12 MO.) 07/01/2021 18:57 [facility] [place] TYPE: Emergency COMPLAINT: - SOB 06/29/2021 11:40 [facility] [place] TYPE: Emergency COMPLAINT: - SOB, BODY ACHES, FEVER DIAGNOSES: - Other halfway (current) drug therapy - Cough - Nicotine dependence, unspecified, uncomplicated - COVID-19 08/19/2020 16:10 [facility] [place] TYPE: Emergency COMPLAINT: - COUGH, SOB DIAGNOSES: - Nicotine dependence, unspecified, uncomplicated - Contact with and (suspected) exposure to other viral communicable diseases - Acute bronchitis, unspecified - Cough - Allergy status to penicillin INPATIENT VISIT TRACKING (12 MO.) No inpatient visits to display in this time frame [email or web address]
[2021-07-01] MEDS ORDERED: PREDNISONE20 MG PO (20:30)
--- NOTE | 2021-07-02 18:56 | EKG ---
[facility] [address] [facility] [place] [address] Signed Normal sinus rhythm Minimal voltage criteria for LVH, may be normal variant Nonspecific T wave abnormality Abnormal ECG No previous ECGs available Confirmed by BAILEY SPENCER MD ([id number]) on 07/02/2021 6:56:39 PM Electronically Signed By: BAILEY SPENCER MD 07/02/21 1856 PATIENT NAME: MARQUITA FAJARDO SARAH Electrocardiogram DATE OF : 69 PHYSICIAN: BAILEY SPENCER MD REPORT #: [id number] REPORT IS CONFIDENTIAL AND NOT TO BE RELEASED WITHOUT AUTHORIZATION
== END 2021-07-01 21:24 | disposition home or self-care (01) ==
LOC: ED 18:57
DX: U07.1 COVID-19 (principal); F17.200 Nicotine dependence, unspecified, uncomplicated; Z88.0 Allergy status to penicillin; Z79.52 Long term (current) use of systemic steroids; Z79.899 Other long term (current) drug therapy
CPT/HCPCS: 71045; 80053; 83735; 83880; 84484; 85025; 93005; 93010; 99285-25; J7512

== ENCOUNTER 2024-09-14 07:15 | Inpatient (IN) | payer OTHER ==
[2024-09-14] VITALS (8 sets, daily range): BP systolic 136–140; BP diastolic 78–85
[~2024-09-14] VITALS: Ht 182.9 cm; Wt 105.8 kg
[2024-09-14] MEDS ORDERED: methylPREDNISolone SOD SUCC 125 MG/2 ML VIAL IV ONE (07:30)
[2024-09-14] MEDS ORDERED: IPRATROPIUM BROMIDE 2.5 ML VIAL INH ONE (07:30)
[2024-09-14] MEDS ORDERED: ALBUTEROL SULFATE 0.5% 2.5 MG/0.5 ML VIAL INH ONE (07:30)
[2024-09-14 07:40] LABS: BASOPHILS 0.3 % (0-2); EOSINOPHILS 0.7 % (0-6); HEMATOCRIT 40.9 % (35.0-50.0); HEMOGLOBIN 13.8 g/dL (12.0-18.0); LYMPHOCYTES 11.9 % (24-44); MCH 31.8 (27-36); MCHC 33.7 g/dl (30-36); MCV 94.3 fl (81-99); MONOCYTES 10.7 % (0-12); NEUTROPHILS 76.4 % (39-80); PLATELET COUNT 135 K/uL (140-440); RBC 4.34 M/ul (4.3-5.7)
[2024-09-14 08:06] LABS: ALBUMIN 3.8 g/dL (3.4-5.0); ALBUMIN/GLOBULIN RATIO 1.31 (1.1-2.4); ANION GAP 15.8 (7-21); BILIRUBIN, TOTAL 1.5 ng/dL (0.2-1.0); BUN/CREATININE RATIO 13.93 (6.0-28.6); CALCIUM 8.9 mg/dL (8.5-10.1); CREATININE, SERUM 1.22 mg/dL (0.70-1.30); POTASSIUM 4.8 mmol/L (3.5-5.1); PROTEIN, TOTAL 6.7 g/dL (6.4-8.2)
[2024-09-14 08:36] LABS: INFLUENZA B NAA NEGATIVE (NEGATIVE); RESPIRATORY SYNCYTIAL VIR NAA NEGATIVE (NEGATIVE)
[2024-09-14] MEDS ORDERED: FUROSEMIDE 40 MG/4 ML VIAL IV ONE (10:00)
[2024-09-14] MEDS ORDERED: ACETAMINOPHEN 325 MG TAB PO PRN (10:30)
[2024-09-14] MEDS ORDERED: bisacodyL 10 MG SUPP PR PRN (10:30)
[2024-09-14] MEDS ORDERED: ondansetron HCL 4 MG/2 ML VIAL IV PRN (10:30)
--- NOTE | 2024-09-14 11:29 | NUR ---
PT TO [facility] ALERT AND UPBEAT. ORIENTED TO ROOM. PT SELF TRANSFERS TO BED, STANDS TO VOID USES URINAL. CALL LIGHT AND NEEDED ITEMS AT BEDSIDE.
--- NOTE | 2024-09-14 11:59 | NUR ---
PT NOT AVAILABLE FOR VISIT. PROVIDED PRAYER.
[2024-09-14] MEDS ORDERED: ALBUTEROL SULFATE 0.083% 3 ML VIAL INH PRN (12:00)
[2024-09-14] MEDS ORDERED: ALBUTEROL/IPRATROPIUM 3 ML NEB INH SCH (12:00)
[2024-09-14] MEDS ORDERED: PHARMACY RENAL DOSE ADJUSTMENT 1 DOSE MISC PO SCH (12:00)
--- NOTE | 2024-09-14 12:05 | NUR ---
DR THAO IN TO SEE PT ALL QUESTIONS ANSWERED DISCUSSED POSSINLE AND LIKELY DIAGNOSIS
--- NOTE | 2024-09-14 12:20 | NUR ---
PT HAS PUT OUT 1500 MLS OF URINE SINCE ADMIT TO MED-SURG. NOON MEAL SERVED PT DENIES OTHER NEEDS. HE IS SPEAKING ON THE PHONE TO HIS . CALL LIGHT ON LAP ENCOURAGED TO CALL FOR ANY NEEDS
--- NOTE | 2024-09-14 13:08 | NUR ---
PT RESTING EYES CLOSED AWAKENS WHEN DOOR IS OPENED. AGREES HE IS COMFORTABLE AND WITHOUT NEED. BREATHING IS EVEN AND UNLABORED CONTINUES ON ROOM AIR
[2024-09-14] MEDS ORDERED: CEFTRIAXONE/SODIUM CHLORIDE 2 GM/100 ML PIGGYBACK IV SCH (14:03)
[2024-09-14] MEDS ORDERED: AZITHROMYCIN 250 MG TAB PO SCH (14:04)
--- NOTE | 2024-09-14 14:24 | NUR ---
patient takes no home medications
--- NOTE | 2024-09-14 14:36 | NUR ---
PATIENT IN BED WATCHING TV AT THIS TIME. VITALS AND I&O'S DONE AND CHARTED. CALL LIGHT IN REACH. NO FURTHER NEEDS AT THIS TIME.
--- NOTE | 2024-09-14 15:12 | NUR ---
PT SITTING UP IN BED AFTER NAPPING FOR AWHILE. BREATHING IS EVEN AND UNLAOBORED PT DENIES DISCOMFORTS. CONTINUES TO PRODUCE COPIOUS AMOUNTS OF CLEAR YELLOW URINE
--- NOTE | 2024-09-14 18:10 | NUR ---
PT EATS 100% OF EVENING MEAL PRESENT IN THE ROOM. PT DENIES SOB, NO LABORED BREATHING, REMAINS ON RA. STATES "I FEEL A LOT BETTER THAN WHEN I GOT HERE" LUNG SOUNDS STILL WHEEZY. PT AGREES HE IS COMFORTABLE DENIES NEEDS
--- NOTE | 2024-09-14 18:33 | NUR ---
PATIENT IN BED WATCHING TV AT THIS TIME. VITALS AND I&O'S DONE AND CHARTED. CALL LIGHT IN REACH. NO FURTHER NEEDS AT THIS TIME.
--- NOTE | 2024-09-14 19:29 | NUR ---
REPORT RECEIVED FROM DAY SHIFT RN. PT LYING IN BED ALERT AND ORIENTED. DENIES NEEDS. WHITE BOARD UPDATED. CALL LIGHT IN REACH.
--- NOTE | 2024-09-14 20:20 | NUR ---
EVENING ASSESSMENT COMPLETE. PT DENIES PAIN OR NAUSEA. DENIES SOB. SpO2 98% ON RA. LOOSE NONPRODUCTIVE COUGH NOTED. EXPIRATORY WHEEZE NOTED IN UPPER LUNGS. TELE #[address] SR. HR 90'S. PT DENIES QUESTIONS OR CONCERNS. CALL LIGHT IN REACH.
[2024-09-14] MEDS ORDERED: MELATONIN 3 MG TAB PO PRN (21:00)
[2024-09-14] MEDS ORDERED: BUDESONIDE 0.5 MG/2 ML VIAL INH SCH (21:00)
--- NOTE | 2024-09-14 23:15 | NUR ---
PT RESTING IN BED ON RIGHT SIDE WITH EYES CLOSED. RESPIRATIONS EVEN. CALL LIGHT IN REACH.
[2024-09-15] VITALS (11 sets, daily range): BP systolic 123–147; BP diastolic 79–93
--- NOTE | 2024-09-15 02:01 | NUR ---
PT RESTING WITH EYES CLOSED. AWAKENS EASILY. VS AND I&O OBTAINED. ASSESSMENT COMPLETE. SCATTERED WHEEZE HEARD THROUGHOUT. PT REPORTS SLIGHT SOB. RT CALLED FOR BREATHING TX. SNACK PROVIDED. PT REPORTS HE IS RESTING WELL. NO FURTHER NEEDS.
[2024-09-15 02:26] LABS: PROCALCITONIN 0.15 ng/mL (())
--- NOTE | 2024-09-15 03:46 | NUR ---
PT RESTING IN BED WITH EYES CLOSED. RESPIRATION EVEN. CALL LIGHT IN REACH.
[2024-09-15 05:37] LABS: BASOPHILS 0.3 % (0-2); EOSINOPHILS 0.1 % (0-6); HEMATOCRIT 40.2 % (35.0-50.0); HEMOGLOBIN 13.3 g/dL (12.0-18.0); LYMPHOCYTES 6.9 % (24-44); MCHC 33.2 g/dl (30-36); MCV 93.7 fl (81-99); MONOCYTES 8.4 % (0-12); NEUTROPHILS 84.3 % (39-80); PLATELET COUNT 149 K/uL (140-440); RDW 14.9 (10.5-15.0)
[2024-09-15 06:04] LABS: ANION GAP 14.1 (7-21); BUN/CREATININE RATIO 18.26 (6.0-28.6); CALCIUM 8.7 mg/dL (8.5-10.1); CREATININE, SERUM 1.15 mg/dL (0.70-1.30); MAGNESIUM 1.8 mg/dL (1.8-2.4); POTASSIUM 4.1 mmol/L (3.5-5.1); TSH, 3RD GENERATION 0.622 uIU/mL (0.358-3.740)
[2024-09-15 06:25] LABS: CHOLESTEROL/HDL RATIO 2.5
--- NOTE | 2024-09-15 07:21 | NUR ---
PT AWAKE AND INTERACTIVE AT TIME OF SHIFT REPORT AGREES HE IS COMFORTABLE. BREATHING IS EVEN AND UNLABORED. HE IS WATCHING TV DENIES NEEDS PLANS TO SHOWER AFTER MORNING MEAL
--- NOTE | 2024-09-15 08:03 | NUR ---
PATIENT IN BED AT THIS TIME. MANAGER OF CLINICAL WENT INTO PATIENTS ROOM FOR HOURLY ROUNDS. CALL LIGHT WITHIN REACH, NO FURTHER NEEDS AT THIS TIME.
--- NOTE | 2024-09-15 08:30 | NUR ---
MORNING MEAL WELL TOLERATED PT AGREES HE IS READY TO TAKE HIS SHOWER.
[2024-09-15] MEDS ORDERED: ENOXAPARIN SODIUM 40 MG/0.4 ML SYR SUB-Q SCH (09:00)
[2024-09-15] MEDS ORDERED: predniSONE 20 MG TAB PO SCH (09:00)
[2024-09-15] MEDS ORDERED: FUROSEMIDE 40 MG/4 ML VIAL IV SCH (09:00)
--- NOTE | 2024-09-15 09:40 | NUR ---
DR THAO IN TO SEE PT DISCUSSES PLAN GOING FORWARD ALL QUESTIONS ADDRESSED
--- NOTE | 2024-09-15 09:54 | NUR ---
PATIENT IN BED AT THIS TIME. TREASURY ACCOUNTANT SET PATIENT UP WITH SHOWER, PATIENT ABLE TO SHOWER INDEPENDENTLY. CALL LIGHT WITHIN REACH, NO FURTHER NEEDS AT THIS TIME.
--- NOTE | 2024-09-15 09:56 | NUR ---
PATIENT IN BED. PRODUCTION DISPATCHER CHARTED VITALS AND I&O'S. CALL LIGHT WITHIN REACH, NO FURTHER NEEDS.
--- NOTE | 2024-09-15 10:12 | NUR ---
SHOWER WELL TOLERATED PT AGREES HE FEELS "PRETTY GOOD" NO INCREASED SOB PUTTING OUT COPIOUS AMOUNTS OF URINE.
--- NOTE | 2024-09-15 10:32 | NUR ---
UR CLINICAL REVIEW: [facility]-MEET INPATIENT FOR CHF [facility] INPT 09/14/24 @ 1034 ORDER MATCHES REG CLINICALS FAXED FOR AUTH REVIEW DISCHARGE TO HOME WHEN STABLE 09/17/24
--- NOTE | 2024-09-15 11:46 | NUR ---
PT RESTING IN BED WATCHING TV. CALL LIGHT AND NEEDED ITEMS IN REACH
--- NOTE | 2024-09-15 13:24 | NUR ---
THIS RT IN WITH PT AT THIS TIME TO PERFORM BEDSIDE SPIROMETRY PFT. PT HAD GREAT TECHNIQUE AND TOLERATED TEST WELL. RESULTS WERE PLACED IN PT CHART.
--- NOTE | 2024-09-15 13:30 | NUR ---
R/T IN WITH PT
--- NOTE | 2024-09-15 14:00 | NUR ---
Spoke with Ministerio for the rest of his assessment today. He had multiple people in his room yesterday when I attempted to complete. He states he lives with his disabled , she has a state paid cg. He does not use any DME and works at [employer]. He denies needs, but does not have a pcp. We discussed office in our area. I suggested [facility] as the take [facility] pts. Pt them remembered he was their pt in the past. I will contact them to set up an appt. Pt Pt denies any other needs, plans on dc to home when cleared medically. He denies financial issues.
--- NOTE | 2024-09-15 14:03 | NUR ---
VISITED DURING SPIRITUAL CARE ROUNDS. PT APPEARED TO BE SLEEPING. DID NOT DISTURB. PROVIDED PRAYER.
--- NOTE | 2024-09-15 14:14 | NUR ---
PATIENT IN BED AT THIS TIME. FILLER AND TRIMMER CHARTED VITALS AND I&O'S. CALL LIGHT WITHIN REACH, NO FURTHER NEEDS AT THIS TIME.
--- NOTE | 2024-09-15 14:30 | NUR ---
Called zion at [facility]. She states pt has been their pt in the past, but has not been seen in a couple of years. She scheduled pt for Oct 07, 2023 at 10:00. Pt needs to arrive 30 min early to update his paperwork.
--- NOTE | 2024-09-15 14:49 | NUR ---
PT RESTING EYES CLOSED
--- NOTE | 2024-09-15 17:39 | NUR ---
EVENING MEAL WELL TOLERATED PT DENIES ANY NEEDS AT THIS TIME. AGREES HE FEELS "MUCH BETTER" THAN YESTERDAY. PT UP IN ROOM INDEPENDANTLY NO S/S OF INCREASED WORK OF BREATHING.
--- NOTE | 2024-09-15 18:24 | NUR ---
DR THAO IN TO DISCUSS TEST RESULTS WITH PT ALL QUESTIONS ANSWERED
--- NOTE | 2024-09-15 19:12 | NUR ---
PATIENT IN BED AT THIS TIME. GUEST SERVICE AIDE CHARTED VITALS AND I&O'S. CALL LIGHT WITHIN REACH, NO FURTHER NEEDS AT THIS TIME.
--- NOTE | 2024-09-15 19:34 | NUR ---
REPORT RECEIVED FROM DAY SHIFT RN. PT LYING IN BED ALERT AND ORIENTED. DENIES NEEDS. WHITE BOARD UPDATED. CALL LIGHT IN REACH.
--- NOTE | 2024-09-15 20:16 | NUR ---
EVENING ASSESSMENT COMPLETE. SCHEDULED MEDS ADMIN PER EMAR. PT DENIES PAIN OR NAUSEA. DENIES SOB. SCATTERED WHEEZE AUSCULTATED THROUGHOUT. SpO2 97% ON RA. HR 90'S. JELLO PROVIDED PER REQUEST. NO FURTHER NEEDS. CALL LIGHT IN REACH.
--- NOTE | 2024-09-15 23:50 | NUR ---
PT RESTING IN BED WITH EYES CLOSED. RESPIRATIONS EVEN. CALL LIGHT IN REACH.
[2024-09-16] VITALS (12 sets, daily range): BP systolic 137–149; BP diastolic 79–113
--- NOTE | 2024-09-16 01:23 | NUR ---
PT AWAKE USING URINAL. VS OBTAINED, WNL. PT DENIES SOB. LUNGS WITH SCATTERED WHEEZE THROUGHOUT. SpO2 97% ON RA. NO NEEDS AT THIS TIME. CALL LIGHT IN REACH.
--- NOTE | 2024-09-16 03:48 | NUR ---
PT RESTING IN BED WITH EYES CLOSED. RESPIRATIONS EVEN. CALL LIGHT IN REACH.
[2024-09-16 05:46] LABS: BASOPHILS 1.2 % (0-2); EOSINOPHILS 0.3 % (0-6); HEMATOCRIT 41.1 % (35.0-50.0); HEMOGLOBIN 13.5 g/dL (12.0-18.0); LYMPHOCYTES 12.5 % (24-44); MCHC 32.8 g/dl (30-36); MCV 94.4 fl (81-99); MONOCYTES 6.5 % (0-12); NEUTROPHILS 79.5 % (39-80); PLATELET COUNT 158 K/uL (140-440); RBC 4.36 M/ul (4.3-5.7)
[2024-09-16 06:15] LABS: BUN/CREATININE RATIO 20.95 (6.0-28.6); CALCIUM 8.6 mg/dL (8.5-10.1); CREATININE, SERUM 1.05 mg/dL (0.70-1.30)
--- NOTE | 2024-09-16 06:46 | NUR ---
VS AND I&O OBTAINED. NOTIFIED REGARDING BLOOD PRESSURE. DAILY WEIGHT OBTAINED. PT REPORTS SLIGHT SOB, RT CALLED FOR BREATHING TX. OCCASIONAL NONPRODUCTIVE COUGH NOTED. PT DENIES FURTHER NEEDS. CALL LIGHT IN REACH.
--- NOTE | 2024-09-16 07:20 | NUR ---
PT RESTING IN BED AT THIS TIME, PT AWAKE AND EXPRESSING HIS DESIRE TO GO HOME TODAY, VERY PERSISTANT IN THOSE WISHES. PT STATES HE IS USING THE ACAPELLA AND HE DID HAVE SOME SLIGHT GARCIA SPUTUM AFTER USING, DENIES SOB BUT HE IS AUDIBLY WHEEZY. RT WAS CALLED THIS MORNING TO PROVIDE BREATHING TREATMENT, PT STATES HE FEELS THEY ARE NOT HELPING HIS VERY MUCH, STATES THEY ALMOST MAKE HIM FEEL WORSE. WILL RELAY THIS INFORMATION TO MD THIS MORNING. DENIES ANY FURTHER NEEDS, CALL LIGHT WITHIN REACH, ALLOWED TO REST AND INFORMED WILL BE BACK SHORTLY.
--- NOTE | 2024-09-16 10:10 | NUR ---
PATIENT IN BED AT THIS TIME. FOOT CASTER CHARTED VITALS AND I&O'S. CALL LIGHT WITHIN REACH, NO FURTHER NEEDS AT THIS TIME.
--- NOTE | 2024-09-16 10:56 | NUR ---
VISITED DURING SPIRITUAL CARE ROUNDS. PT IN OVERALL GOOD SPIRITS, NO IMMEDIATE NEEDS. KEYBOARDING TEACHER PROVIDED SUPPORTIVE PRESENCE, HOSPITALITY, PRAYER, FACILITATED INTERACTION WITH THERAPY ANIMAL. PT EXPRESSED GRATITUDE.
--- NOTE | 2024-09-16 11:29 | NUR ---
PT AND FRIENDS PRESENT IN ROOM AT THIS TIME. THEY ARE HAVING A PRAYER SESSION, ADVISED I WOULD RETURN AT LATER TIME WHEN THEY WERE DONE. VERBALIZED UNDERSTANDING.
--- NOTE | 2024-09-16 14:03 | EKG ---
[facility] [address] [facility] [place] [address] Signed Normal sinus rhythm Minimal voltage criteria for LVH, may be normal variant ( Sokolow-Goetz ) Cannot rule out Inferior infarct , age undetermined Cannot rule out Anterior infarct , age undetermined Abnormal ECG When compared with ECG of 01-JUL-2021 19:17, Minimal criteria for Inferior infarct are now present T wave inversion now evident in Inferior leads Inverted T waves have replaced nonspecific T wave abnormality in Lateral leads QT has lengthened Confirmed by Jairo Thao MD ([id number]) on 09/16/2024 2:03:46 PM Electronically Signed By: JAIRO THAO DO 09/16/24 1403 PATIENT NAME: MARQUITA FAJARDO Electrocardiogram DATE OF : 69 PHYSICIAN: JAIRO THAO DO REPORT #: [id number] REPORT IS CONFIDENTIAL AND NOT TO BE RELEASED WITHOUT AUTHORIZATION
--- NOTE | 2024-09-16 14:11 | NUR ---
PATIENT IN BED AT THIS TIME. SENIOR LEAD PROJECT MANAGER CHARTED VITALS AND I&O'S. CALL LIGHT WITHIN REACH, NO FURTHER NEEDS AT THIS TIME.
--- NOTE | 2024-09-16 14:42 | NUR ---
PT IS LYING IN BED LISTENING TO MUSIC. PT HAS CALL LIGHT AND PERSONAL BELONGINGS WITHIN REACH. PT STATED NO FUTHER NEEDS AT THIS TIME.
--- NOTE | 2024-09-16 15:05 | NUR ---
REPORT REC'D FROM CORDELL ORTIZ. PT RESTING IN BED. NO ACUTE DISTRESS NOTED. SR UP X2, CALL ODOM IN REACH, BED IN LOW POSITION AND LOCKED.
--- NOTE | 2024-09-16 15:25 | NUR ---
PT ASSESSMENT COMPLETED. PT A&OX3, AMBULATING INDEPENDENTLY. HRR, L/S COARSE, PT DENIES COUGH OR SPUTUM PRODUCTION. ABD SOFT, REPORTS LBM 09/15/2024. TRACE EDEMA TO BLE, CMS INTACT, CAP REFILL <3SEC. DENIES C/O AND IS HOPING TO DISCHARGE HOME SATURDAY TO MAKE IT TO THE UNEMPLOYMENT OFFICE TO SUBMIT HIS CLAIM. PT INSTRUCTED TO CALL FOR ASSISTANCE. SR UP X2, CALL ODOM IN REACH, BED IN LOW POSITION AND LOCKED.
--- NOTE | 2024-09-16 16:00 | NUR ---
CALL REC'D PATIENT HAD 16 BEATS OF VTACH. THIS RN FOUND PATIENT AMBULATING IN LUCERO WALKING HIS DOG. PT DENIES ANY NOTICE OF THE ARRHYTHMIA, CHEST PAIN, DIZZINESS, SHORTNESS OF BREATH, WEAKNESS OR NAUSEA. PT REPORTS HIS "CABLE" FELL OFF AND HE SNAPPED IT BACK IN PLACE. CCU RNTALAT NOTIFIED OF PATIENT STATUS.
--- NOTE | 2024-09-16 16:00 | NUR ---
Spoke with Ministerio. He denies needs. He is walking in the [place] with his and dog. They stopped by the office. cont. to plan for dc to home when medically cleared.
--- NOTE | 2024-09-16 18:44 | NUR ---
PT CARED FOR T/O SHIFT WITHOUT C/O. NO ADDITIONAL VTACH REPORTED. TELEMETRY REMAINS IN USE SR 90'S. PT U/S OF NECK COMPLETED. PT IMPROVED SPIRITS AFTER VISIT WITH SPOUSE AND DOG.
--- NOTE | 2024-09-16 19:36 | NUR ---
REPORT RECEIVED FROM DAY SHIFT RN. PT LYING IN BED ALERT AND ORIENTED. DENIES NEEDS. WHITE BOARD UPDATED. CALL LIGHT IN REACH.
--- NOTE | 2024-09-16 20:27 | NUR ---
EVENING ASSESSMENT COMPLETE. PT DENIES PAIN OR NAUSEA. DENIES SOB. SpO2 98% ON RA. LUNGS DIM THROUGHOUT. TELE #[address] SR. HR 90'S. VS AND I&O OBTAINED. PT DENIES QUESTIONS OR CONCERNS. CALL LIGHT IN REACH.
--- NOTE | 2024-09-16 23:38 | NUR ---
PT RESTING IN BED WITH EYES CLOSED. RESPIRATIONS EVEN. CALL LIGHT IN REACH.
[2024-09-17] VITALS (11 sets, daily range): BP systolic 133–152; BP diastolic 85–101
--- NOTE | 2024-09-17 01:45 | NUR ---
PT AWAKE IN BED. VS OBTAINED. ASSESSMENT COMPLETE. SCATTERED WHEEZE AUSCULTATED THROUGHOUT ALL LUNG TRINIDAD. PT DENIES SOB. SpO2 HIGH 90'S ON RA. JELLO AND FRESH WATER PROVIDED. NO FURTHER NEEDS. CALL LIGHT IN REACH.
--- NOTE | 2024-09-17 04:30 | NUR ---
PT RESTING IN BED WITH EYES CLOSED. RESPIRATIONS EVEN. CALL LIGHT IN REACH.
[2024-09-17 06:03] LABS: BASOPHILS 0.5 % (0-2); EOSINOPHILS 0.2 % (0-6); HEMATOCRIT 43.2 % (35.0-50.0); HEMOGLOBIN 14.3 g/dL (12.0-18.0); MCH 30.8 (27-36); MCV 93.5 fl (81-99); MONOCYTES 8.3 % (0-12); PLATELET COUNT 173 K/uL (140-440); RBC 4.62 M/ul (4.3-5.7); RDW 14.6 (10.5-15.0)
[2024-09-17 06:04] LABS: ANION GAP 8.8 (7-21); BUN/CREATININE RATIO 16.94 (6.0-28.6); CALCIUM 8.6 mg/dL (8.5-10.1); CREATININE, SERUM 1.18 mg/dL (0.70-1.30); POTASSIUM 3.8 mmol/L (3.5-5.1)
--- NOTE | 2024-09-17 06:44 | NUR ---
PT AWAKE IN BED. VS AND I&O OBTAINED. WEIGHT OBTAINED. PT DENIES PAIN OR NAUSEA. DENIES SOB. NO NEEDS AT THIS TIME. CALL LIGHT IN REACH.
--- NOTE | 2024-09-17 07:05 | NUR ---
REPORT REC'D FROM CORDELL ROSS. PT AWAKE AND ALERT IN BED. NO C/O AT THIS TIME
[2024-09-17] MEDS ORDERED: lisinopriL 5 MG TAB PO SCH (09:00)
[2024-09-17] MEDS ORDERED: BUDESONIDE 0.5 MG/2 ML VIAL INH SCH ×2 (09:00→20:00)
--- NOTE | 2024-09-17 09:00 | NUR ---
Spoke with Ministerio and discussed his meth use. He does not feel it is an issues. He states, "I take a hit in the morning at work to keep up with the young guys". He does not want to speak with CASE. He does agree to take their card. He does not consider his drug use problematic for his health.
--- NOTE | 2024-09-17 09:00 | NUR ---
PT TO XR
--- NOTE | 2024-09-17 09:30 | NUR ---
PT RETURN FROM XR. NO C/O AT THIS TIME. BREAKFAST COMPLETED.
--- NOTE | 2024-09-17 11:20 | NUR ---
PT ALERT AND ORIENTED IN BED AT THIS TIME. HOUSEKEEPING COMPLETING AM ROUNDS. PT INSTRUCTED TO STAY IN BED FLOOR IS WET AT THIS TIME.
--- NOTE | 2024-09-17 13:15 | NUR ---
UR CONCURRENT REVIEW: [facility]-MEET INPATIENT FOR CHF, VARIANCE FOR GL DAY 3 ENTERED. [facility] INPT 09/14/24 @ 1034 ORDER MATCHES REG CLINICALS FAXED FOR AUTH REVIEW DISCHARGE TO HOME WHEN STABLE 09/20/24
--- NOTE | 2024-09-17 13:20 | NUR ---
PT RESTING IN BED, NO C/O VOICED. CONSUMED 100% LUNCH, VOID OF 300 NOTED, DARK YELLOW URINE.
--- NOTE | 2024-09-17 15:05 | NUR ---
PT RESTING IN BED AFTER AMBULATING IN LUCERO. NO C/O VOICED.
--- NOTE | 2024-09-17 18:40 | NUR ---
PT RESTING T/O SHIFT. FLUID RESTRICTION MAINTAINED. BP MEDICATIONS BEING ADJUSTED AT THIS TIME. NOT NOTIFIED OF ANY ARRYTHMIAS DURING SHIFT. PT VERBALIZED NO C/O. CALL ODOM IN REACH, BED LOW POSITION AND LOCKED. SR UP X 2
--- NOTE | 2024-09-17 19:32 | NUR ---
shift report received from dayshift jason jenkins at bedside. pt recently returned from shower. iv site saline locked, some dry blood noted under dressing. pt on ra, rr even and unlabored. no distress noted, bed alarm on for safety and call light in reach. pt denies needs or concerns.
[2024-09-17] MEDS ORDERED: ALBUTEROL/IPRATROPIUM 3 ML NEB INH SCH (20:00)
--- NOTE | 2024-09-17 21:55 | NUR ---
assessment complete, no scheduled meds. pt awoke to voice, denies sob and chest pain. pleasant and interactive with staff. iv site wnl, brisk blood return noted. cms intact, pt denies numbness and tingling. call light in reach.
--- NOTE | 2024-09-17 23:17 | NUR ---
rounded on pt, pt resting in bed with eyes closed. on ra, rr even and unlabored. no distress noted. call light in reach.
--- NOTE | 2024-09-18 00:24 | NUR ---
rounded on pt, pt awoke with opening of door. denies needs or concerns. call light in reach.
[2024-09-18 01:28] VITALS: BP 138/80
--- NOTE | 2024-09-18 01:28 | NUR ---
rounded on pt, pt resting in bed, on ra. rr even and unlabored. no distress noted. call light in reach.
--- NOTE | 2024-09-18 01:44 | NUR ---
FOCUSED ASSESSMENT COMPLETE, NO ACUTE CHANGES. pt REMAINS ON RA, RR EVEN AND UNLABORED. NO SOB OR CHEST PAIN REPORTED WHEN ASKED, pt REMAINS INTERACTIVE WITH STAFF, CONVERSING NORMALLY AND ABLE TO SPEAK IN SENTENCES EASILY. EAGER FOR DISCHARGE. FAINT EXP WHEEZES NOTED WITH AUSCULTATION, CALL LIGHT IN REACH. IV SITE REMAINS WNL, SALINE LOCKED.
[2024-09-18 02:19] VITALS: BP 138/80
--- NOTE | 2024-09-18 04:35 | NUR ---
rounded on pt, pt recently returned from bathroom. on ra, rr even and unlabored. no distress noted. call light in reach. denies needs or concerns.
[2024-09-18 05:07] VITALS: BP 148/103
--- NOTE | 2024-09-18 05:07 | NUR ---
ccu called, per tele monitor-hr briefly up to 196 with 18 beats of v-tach. this rn and meteorologist in charge in room. pt found resting in bed, on left side. initially denied chest pain and sob when asked, vs collected and charted. 148/103, map of 112, apical hr 91 regular sounding with auscultation, 97% on ra, rr 20, oral temp 97.6. after further probing, pt did state, "yeah i felt a little sob right before you came in...like i did when i was home i would get sob and wake up in a panic". pt denies continuation of sob and reports it has resolved. no further needs, call light in reach. denied chest pain throughout.
[2024-09-18 05:48] LABS: BASOPHILS 0.5 % (0-2); EOSINOPHILS 0.3 % (0-6); HEMATOCRIT 43.8 % (35.0-50.0); HEMOGLOBIN 14.3 g/dL (12.0-18.0); LYMPHOCYTES 16.6 % (24-44); MCH 30.7 (27-36); MCHC 32.8 g/dl (30-36); MCV 93.6 fl (81-99); MONOCYTES 7.6 % (0-12); PLATELET COUNT 170 K/uL (140-440); RBC 4.68 M/ul (4.3-5.7); RDW 14.9 (10.5-15.0)
[2024-09-18 06:04] LABS: ANION GAP 9.9 (7-21); BUN/CREATININE RATIO 19.62 (6.0-28.6); CALCIUM 8.6 mg/dL (8.5-10.1); CREATININE, SERUM 1.07 mg/dL (0.70-1.30); MAGNESIUM 1.9 mg/dL (1.8-2.4); POTASSIUM 3.9 mmol/L (3.5-5.1)
[2024-09-18] MEDS ORDERED: LOSARTAN POTASSIUM 25 MG TAB PO SCH (09:00)
[2024-09-18] MEDS ORDERED: METOPROLOL SUCCINATE 25 MG TABCR PO SCH (09:00)
[2024-09-18] MEDS ORDERED: SPIRONOLACTONE 25 MG TAB PO SCH (09:00)
[2024-09-18 10:15] VITALS: BP 148/96
[2024-09-18 10:49] VITALS: BP 148/96
--- NOTE | 2024-09-18 11:10 | NUR ---
VISITED DURING SPIRITUAL CARE ROUNDS. PT EXPRESSED DESIRE TO GO HOME, INDICATING HE IS BEGINNING TO GET DEPRESSED. FARM GENERAL MANAGER PROVIDED SUPPORTIVE PRESENCE, ENCOURAGE SELF ADVOCACY, PROVIDED PRAYER. PT EXPRESSED APPRECIATION.
[2024-09-18] MEDS ORDERED: METOPROLOL SUCC25 MG PO (13:11)
[2024-09-18] MEDS ORDERED: LOSARTAN POTASS25 MG PO (13:11)
[2024-09-18] MEDS ORDERED: VENTOLIN HFA18 GM INH (13:17)
== END 2024-09-18 13:30 | disposition left against medical advice (07) | DRG 193 ==
LOC: ED 07:15 → MS 10:43
PROVIDERS: Emergency Medicine; Student in an Organized Health Care Education/Training Program; ADMIT Student in an Organized Health Care Education/Training Program; ATTEND Student in an Organized Health Care Education/Training Program
DX: J18.9 Pneumonia, unspecified organism (principal); I50.21 Acute systolic (congestive) heart failure; J44.0 Chronic obstructive pulmonary disease with (acute) lower respiratory infection; J44.1 Chronic obstructive pulmonary disease with (acute) exacerbation; E87.0 Hyperosmolality and hypernatremia; D17.0 Benign lipomatous neoplasm of skin and subcutaneous tissue of head, face and neck; I08.1 Rheumatic disorders of both mitral and tricuspid valves; I27.20 Pulmonary hypertension, unspecified; E86.0 Dehydration; F15.10 Other stimulant abuse, uncomplicated; R73.9 Hyperglycemia, unspecified; Z88.0 Allergy status to penicillin
CPT/HCPCS: 36415; 71045; 71046; 71260; 76536; 80048; 80053; 80061; 83036; 83735; 83880; 84439; 84443; 84484; 85025; 87502; 93005; 93010; 93306; 94060; 94640; 94644; 94667; 94668; 94760; 99285-25; J0696; J1650; J1940; J2919; J7512; Q9967; U0002

== ENCOUNTER 2024-11-02 15:19 | Emergency (ER) | payer OTHER ==
[~2024-11-02] VITALS: Ht 182.9 cm; Wt 103.0 kg
[~2024-11-02 15:19] MED LIST changes: +LOSARTAN POTASS25 MG PO; +METOPROLOL SUCC25 MG PO
[2024-11-02] MEDS ORDERED: ASPIRIN 81 MG CHEW PO ONE (15:30)
[2024-11-02 15:37] LABS: BASOPHILS 0.4 % (0-2); EOSINOPHILS 0.1 % (0-6); HEMATOCRIT 46.4 % (35.0-50.0); HEMOGLOBIN 15.6 g/dL (12.0-18.0); LYMPHOCYTES 9.7 % (24-44); MCH 30.3 (27-36); MCHC 33.6 g/dl (30-36); MCV 90.1 fl (81-99); MONOCYTES 9.9 % (0-12); NEUTROPHILS 79.9 % (39-80); PLATELET COUNT 122 K/uL (140-440); RBC 5.15 M/ul (4.3-5.7); RDW 14.8 (10.5-15.0)
[2024-11-02 15:58] LABS: ALBUMIN 3.9 g/dL (3.4-5.0); ALBUMIN/GLOBULIN RATIO 1.15 (1.1-2.4); ANION GAP 13.2 (7-21); BILIRUBIN, TOTAL 0.7 ng/dL (0.2-1.0); BUN/CREATININE RATIO 17.94 (6.0-28.6); CALCIUM 8.8 mg/dL (8.5-10.1); CREATININE, SERUM 1.17 mg/dL (0.70-1.30); MAGNESIUM 1.6 mg/dL (1.8-2.4); POTASSIUM 3.2 mmol/L (3.5-5.1); PROTEIN, TOTAL 7.3 g/dL (6.4-8.2)
[2024-11-02] MEDS ORDERED: ASPIRIN 325 MG TAB PO ONE (16:15)
[2024-11-02 16:27] LABS: PH, VENOUS 7.402 (7.31-7.41)
[2024-11-02 16:48] LABS: AMPHETAMINES, URINE POSITIVE (NEGATIVE); BARBITURATES, URINE NEGATIVE (NEGATIVE); BENZODIAZEPINE, URINE NEGATIVE (NEGATIVE); BUPRENORPHINE, URINE NEGATIVE (NEGATIVE); CANNABINOID, URINE POSITIVE (NEGATIVE); COCAINE, URINE NEGATIVE (NEGATIVE); ECSTASY, URINE NEGATIVE (NEGATIVE); FENTANYL, URINE NEGATIVE (NEGATIVE); METHADONE, URINE NEGATIVE (NEGATIVE); OPIATES, URINE NEGATIVE (NEGATIVE); OXYCODONE, URINE NEGATIVE (NEGATIVE); PHENCYCLIDINE, URINE NEGATIVE (NEGATIVE)
[2024-11-02 16:49] LABS: CORONAVIRUS COVID-19 AG NEGATIVE (NEGATIVE); INFLUENZA A AG POSITIVE (NEGATIVE); INFLUENZA B AG NEGATIVE (NEGATIVE)
[2024-11-02 19:55] VITALS: BP 128/85
--- NOTE | 2024-11-03 18:12 | EKG ---
[facility] [address] [facility] [place] [address] Signed Normal sinus rhythm Moderate voltage criteria for LVH, may be normal variant ( Sokolow-Goetz , Yaw product ) Inferior infarct , age undetermined Anterior infarct , age undetermined Abnormal ECG No previous ECGs available Confirmed by Tay Blank MD ([id number]) on 11/03/2024 6:12:03 PM Electronically Signed By: TAY BLANK MD 11/03/241811 PATIENT NAME: MARQUITA FAJARDO Electrocardiogram DATE OF : 69 PHYSICIAN: TAY BLANK MD REPORT #: [id number] REPORT IS CONFIDENTIAL AND NOT TO BE RELEASED WITHOUT AUTHORIZATION
== END 2024-11-02 19:48 | disposition home or self-care (01) ==
LOC: ED 15:19
PROVIDERS: Emergency Medicine
DX: J10.1 Influenza due to other identified influenza virus with other respiratory manifestations (principal); R79.89 Other specified abnormal findings of blood chemistry; I50.9 Heart failure, unspecified; F17.200 Nicotine dependence, unspecified, uncomplicated; Z88.0 Allergy status to penicillin; Z79.899 Other long term (current) drug therapy
CPT/HCPCS: 36415; 71045; 80053; 80307; 82803; 83735; 83880; 84484; 85025; 93005; 93010; 99285-25; A9270

== ENCOUNTER 2025-06-15 09:53 | Emergency (ER) | payer OTHER ==
[~2025-06-15] VITALS: Ht 182.9 cm; Wt 96.1 kg
[2025-06-15] MEDS ORDERED: SPIRONOLACTONE25 MG PO (10:09)
[2025-06-15] MEDS ORDERED: LO-DOSE ASPIRIN81 MG PO (10:09)
[2025-06-15] MEDS ORDERED: ROSUVASTATIN CA20 MG PO (10:09)
[2025-06-15] MEDS ORDERED: NITROGLYCERIN0.4 MG SL (10:10)
[2025-06-15] MEDS ORDERED: ENTRESTO 24 MG1 EACH PO (10:10)
[2025-06-15 10:27] LABS: BASOPHILS 0.5 % (0.2-1.2); EOSINOPHILS 2.3 % (0.8-7.0); LYMPHOCYTES 16.4 % (21.8-53.1); MCH 31.6 PG (25.7-32.2); MCHC 33.2 g/dL (32.3-36.5); MCV 95.3 fL (79.0-92.2); MONOCYTES 7.7 % (5.3-12.2); NEUTROPHILS 72.7 % (34.0-67.9); RBC 4.49 M/uL (4.63-6.08)
[2025-06-15] MEDS ORDERED: SODIUM CHLORIDE 0.9% 1,000 ML IV PRN (10:45)
[2025-06-15 10:47] LABS: ALT (SGPT) 18.0 U/L (14-59); AST (SGOT) 18.0 U/L (15-37); GLOMERULAR FILTRATION RATE,EST 95.0 mL/min (>60); PROTEIN, TOTAL 6.0 g/dL (6.4-8.2); UREA NITROGEN 13.0 mg/dL (7-18)
[2025-06-15 11:06] LABS: CORONAVIRUS COVID-19 AG NEGATIVE (NEGATIVE)
[2025-06-15] MEDS ORDERED: KETOROLAC TROMETHAMINE 15 MG/ML VIAL IV ONE (11:15)
[2025-06-15 12:05] VITALS: BP 155/84
--- NOTE | 2025-06-16 18:05 | EKG ---
[facility] [address] [place] [address] Signed Unusual P axis, possible ectopic atrial bradycardia with occasional premature ventricular complexes Cannot rule out Anterior infarct (cited on or before 14-SEP-2024) Abnormal ECG When compared with ECG of 02-NOV-2024 15:25, Ectopic atrial rhythm has replaced Sinus rhythm Vent. rate has decreased BY 26 BPM Criteria for Inferior infarct are no longer present Nonspecific T wave abnormality no longer evident in Lateral leads Confirmed by NADIR ODOM MD ([id number]) on 06/16/2025 6:05:10 PM Electronically Signed By: NADIR ODOM 06/16/25 1805 PATIENT NAME: MARQUITA FAJARDO Electrocardiogram DATE OF : 69 PHYSICIAN: NADIR ODOM REPORT #: [id number] REPORT IS CONFIDENTIAL AND NOT TO BE RELEASED WITHOUT AUTHORIZATION
== END 2025-06-15 12:14 | disposition home or self-care (01) ==
LOC: ED 09:53
PROVIDERS: Emergency Medicine
DX: R51.9 Headache, unspecified (principal); I50.9 Heart failure, unspecified; F17.200 Nicotine dependence, unspecified, uncomplicated; Z88.0 Allergy status to penicillin; Z79.899 Other long term (current) drug therapy; Z79.82 Long term (current) use of aspirin
CPT/HCPCS: 36415; 71045; 80053; 83735; 83880; 84484; 85025; 93005; 93010; 96374; 99284-25; J1885; J7030